=== PATIENT | female | born 1980 | race Caucasian/White ===

== ENCOUNTER 2022-05-14 17:12 | Inpatient (IN) | payer OTHER ==
[~2022-05-14] VITALS: Ht 162.6 cm; Wt 52.6 kg
[2022-05-14] MEDS ORDERED: DIPHENHYDRAMINE 50MG CAPSULE PO STA (17:22)
[2022-05-14 18:10] LABS: BASOPHILS % 0.5 % (0.0-2.0); EOSINOPHILS % 0.7 % (0.0-5.0); HEMATOCRIT. 34.9 % (36.0-48.0); HEMOGLOBIN. 12.3 g/dL (12.0-16.0); LYMPHOCYTES % 17.3 % (20.0-50.0); MEAN CORPUSCULAR HEMOGLOBIN 30.9 pg (28.0-32.0); MEAN CORPUSCULAR VOLUME 87.3 fL (81.0-99.0); MEAN PLATELET VOLUME 7.6 fl (7.4-10.4); MONOCYTES % 9.6 % (2.0-8.0); NEUTROPHILS % 71.9 % (40.0-76.0); PLATELET 182 x1000/uL (130-400); RED CELL DISTRIBUTION WIDTH 14.2 % (11.6-14.6)
[2022-05-14 18:14] LABS: CHLORIDE 112 mEq/L (98-107)
[2022-05-14 18:33] LABS: CREATINE KINASE 96 IU/L (26-192); ETHANOL BLOOD < 10 mg/dL
[2022-05-14] MEDS ORDERED: LORAZEPAM 0.5MG TABLET PO ONE (19:45)
[2022-05-14] MEDS ORDERED: KEPP500 MT (22:03)
[2022-05-14] MEDS ORDERED: CLONIDINE 0.1MG TABLET PO PRN (22:15)
[2022-05-14] MEDS ORDERED: GUAIFENESIN 200MG/10ML SUGAR FREE UDC PO PRN (22:15)
[2022-05-14] MEDS ORDERED: MAGNESIUM/ALUMINUM HYDROXIDE/SIMETHICONE 30ML UDC PO PRN (22:15)
[2022-05-14] MEDS ORDERED: ACETAMINOPHEN 325MG TABLET PO PRN (22:15)
[2022-05-14] MEDS ORDERED: ONDANSETRON HCL 4MG/2ML INJ IV PRN (22:15)
[2022-05-14] MEDS ORDERED: DOCUSATE SODIUM 100MG CAPSULE PO PRN (22:15)
[2022-05-14] MEDS: LACTATED RINGERS 1,000 ML IV SCH (22:30)
[2022-05-14] MEDS ORDERED: LACTULOSE 20G/30ML UDC PO NR (22:30)
[2022-05-15 02:56] VITALS: BP 116/62
[2022-05-15 04:00] VITALS: BP 98/54
[2022-05-15] MEDS ORDERED: LORAZEPAM 2MG/ML CPJ IV PRN (06:00)
[2022-05-15 08:00] VITALS: BP 125/74
[2022-05-15] MEDS: ENOXAPARIN 40MG/0.4ML SYR SUBCUT SCH (09:19)
[2022-05-15] MEDS: LEVETIRACETAM 500MG TABLET PO SCH ×2 (09:20→20:46)
[2022-05-15 09:35] LABS: CHLORIDE 112 mEq/L (98-107)
[2022-05-15 09:51] LABS: T4 FREE 1.04 ng/dL (0.76-1.46)
[2022-05-15 10:15] LABS: BASOPHILS % 0.6 % (0.0-2.0); EOSINOPHILS % 1.2 % (0.0-5.0); HEMATOCRIT. 34.8 % (36.0-48.0); HEMOGLOBIN. 12.2 g/dL (12.0-16.0); LYMPHOCYTES % 26.3 % (20.0-50.0); MEAN CORPUSCULAR HEMOGLOBIN 30.4 pg (28.0-32.0); MEAN CORPUSCULAR VOLUME 86.9 fL (81.0-99.0); MEAN PLATELET VOLUME 7.8 fl (7.4-10.4); MONOCYTES % 9.3 % (2.0-8.0); NEUTROPHILS % 62.6 % (40.0-76.0); PLATELET 169 x1000/uL (130-400); RED CELL DISTRIBUTION WIDTH 14.4 % (11.6-14.6)
[2022-05-15 11:01] LABS: CREATINE KINASE 67 IU/L (26-192); CREATINE KINASE MB FRACTION < 1.0 ng/mL (0.5-3.6)
[2022-05-15 12:00] VITALS: BP 100/67
[2022-05-15] MEDS: LACTATED RINGERS 1,000 ML IV SCH (12:30)
[2022-05-15 16:00] VITALS: BP 111/65
[2022-05-15 19:53] LABS: CREATINE KINASE 58 IU/L (26-192); CREATINE KINASE MB FRACTION < 1.0 ng/mL (0.5-3.6)
[2022-05-15 20:00] VITALS: BP 120/72
[2022-05-15] MEDS ORDERED: FAMOTIDINE 20MG TABLET PO SCH (21:00)
[2022-05-15] MEDS: BENZTROPINE MESYLATE 1MG TABLET PO SCH (21:08)
[2022-05-16] VITALS: BP 105/73
[2022-05-16 04:00] VITALS: BP 115/59
[2022-05-16 06:13] LABS: BASOPHILS % 0.6 % (0.0-2.0); EOSINOPHILS % 2.3 % (0.0-5.0); HEMATOCRIT. 43.2 % (36.0-48.0); LYMPHOCYTES % 28.5 % (20.0-50.0); MEAN CORPUSCULAR VOLUME 89.4 fL (81.0-99.0); MEAN PLATELET VOLUME 7.8 fl (7.4-10.4); NEUTROPHILS % 60.6 % (40.0-76.0); PLATELET 179 x1000/uL (130-400); RED BLOOD CELL COUNT 4.83 mill/uL (4.2-5.4); RED CELL DISTRIBUTION WIDTH 14.6 % (11.6-14.6)
[2022-05-16 08:00] VITALS: BP 108/59
[2022-05-16 09:23] LABS: CHLORIDE 112 mEq/L (98-107)
[2022-05-16] MEDS: BENZTROPINE MESYLATE 1MG TABLET PO SCH (09:57)
[2022-05-16] MEDS: LEVETIRACETAM 500MG TABLET PO SCH (09:57)
[2022-05-16] MEDS: ENOXAPARIN 40MG/0.4ML SYR SUBCUT SCH (09:58)
[2022-05-16 12:00] VITALS: BP 105/71
[2022-05-16 15:06] VITALS: BP 108/59
== END 2022-05-16 16:00 | disposition home or self-care (01) | DRG 72 ==
LOC: ER 17:12 → 7EST 20:58 → EDBEDREQSVC 22:35 → ENRESERV 23:04
PROVIDERS: ADMIT Hospitalist; ATTEND Hospitalist
PROC: 4A00X4Z Measurement of Central Nervous Electrical Activity, External Approach (ICD-10-PCS; principal; 2022-05-16)
DX: G93.40 Encephalopathy, unspecified (principal); G36.0 Neuromyelitis optica [Devic]; R73.9 Hyperglycemia, unspecified; G35 Multiple sclerosis; G47.25 Circadian rhythm sleep disorder, jet lag type; Z79.899 Other long term (current) drug therapy
CPT/HCPCS: 36415; 70551; 71045; 80053; 80307; 80320; 80329; 82140; 82542; 82550; 82553; 82962; 83605; 83880; 84439; 84443; 84484; 85025; 85651; 93005; 95816; 99285; C1893; J1650; J2060; Q0163; G0480